=== PATIENT | female | born 1995 | race Caucasian/White ===

== ENCOUNTER 2021-02-28 21:39 | Emergency (ER) | payer BC ==
[~2021-02-28] VITALS: Ht 160 cm; Wt 97.0 kg
[2021-02-28 22:27] LABS: AMPHETAMINE SCREEN, URINE NEGATIVE (NEGATIVE); BARBITURATE SCREEN URINE NEGATIVE (NEGATIVE); BENZODIAZEPINES SCREEN URINE NEGATIVE (NEGATIVE); CANNABINOID SCREEN, URINE NEGATIVE (NEGATIVE); COCAINE SCREEN URINE NEGATIVE (NEGATIVE); METHADONE STAT NEGATIVE (NEGATIVE); METHAMPHETAMINE SCREEN URINE S NEGATIVE (NEGATIVE); OPIATE SCREEN URINE NEGATIVE (NEGATIVE); OXYCODONE STAT NEGATIVE (NEGATIVE); PROPOXYPHENE STAT NEGATIVE (NEGATIVE); TRICYCLIC ANTIDEPRESSANTS SCRE NEGATIVE (NEGATIVE)
--- NOTE | 2021-02-28 22:28 | ED Psychosocial ---
General Chief Complaint: Suicidal Ideation Risk Stated Complaint: SUICIDAL Nursing Triage Note: Pt ambulatory into ER with complaint of suicidal thoughts. Pt states that she has been feeling this way for a while, and last night after fighting with unknown person, she had to fight herself to keep from placing a plastic bag over her head and killing herself. Pt states that she doesn't want to , but plans to kill herself in two years. Pt didn't divuldge more into that. Pt states that she has been keeping her feelings bundled up for too long and this is why she feels suicidal and has plans. Pt denies any self harm. Source: patient Exam Limitations: no limitations (NICOLE GARLAND MD) History of Present Illness Date Seen by Provider: Feb 28, 2021 Time Seen by Provider: 22:19 Initial Comments Patient is a 25-year-old female who presents to the emergency department with her friends this evening with a chief concern of thoughts of harming herself. Patient states over the last couple of days she has had escalating thoughts of self-harm particularly cutting her wrists and ankles and just bleeding to and yesterday states that she was thinking about putting a bag over her head and suffocating herself but talked herself out of it. Patient denies any specific triggers to me. Patient states that she has a history of self-harm and has cut herself twice in the past. She has not done that in the last couple of days but states that she has access to a knife that she keeps in her car. Patient takes Latuda for bipolar disorder and sees a therapist through [facility] as well as a doctor through [facility] that prescribes her medications. She last saw her physician last Tuesday and told her that she had been having thoughts of hurting herself. The physician recommended that she see her therapist but she has not seen her yet. Patient denies any recent illnesses, fevers, chills, cough or congestion. No diarrhea or Covid concerns. No burning with urination or abnormal vaginal discharge. All other review of systems reviewed and negative except as stated above. Timing/Duration: getting worse Severity: severe Associated Symptoms: suicidal ideation (NICOLE GARLAND MD) Allergies and Home Medications Allergies Coded Allergies: No Known Drug Allergies (Unverified , 03/01/21) Patient Home Medication List Home Medication List Reviewed: Yes (NICOLE GARLAND MD) Review of Systems Constitutional: see HPI EENTM: no symptoms reported Respiratory: no symptoms reported Cardiovascular: no symptoms reported Gastrointestinal: no symptoms reported Genitourinary: no symptoms reported : No Control/STD Prophylaxis: Other Musculoskeletal: no symptoms reported Skin: no symptoms reported Psychiatric/Neurological: Anxiety, Depressed, Emotional Problems, Other (Suicidal thoughts) (NICOLE GARLAND MD) All Other Systems Reviewed Negative Unless Noted: Yes (NICOLE GARLAND MD) Past Ypyeldl-Yrywgk-Eheqxn Hx Patient Social History Tobacco Use?: No Use of E-Cig and/or Vaping dev: Yes E-Cig or Vaping type used: Nicotine Substance use?: No Alcohol Use?: No Pt feels they are or have been: No (NICOLE GARLAND MD) Immunizations Up To Date Influenza Vaccine Up-to-Date: No; Not Current (NCIOLE GARLAND MD) Physical Exam Vital Signs - First Documented 02/28/21 21:53 Temp 36.7 Pulse 90 Resp 20 B/P (MAP) 129/85 (100) Pulse Ox 98 O2 Delivery Room Air (CHARO STROUD MD) Capillary Refill : Less Than 3 Seconds (NICOLE GARLAND MD) Height, Weight, BMI Height: '" Weight: lbs. oz. kg; 37.00 BMI Method: General Appearance: WD/WN, no apparent distress, other (Slightly disheveled and dirty appearing) HEENT: PERRL/EOMI Neck: normal inspection Respiratory: lungs clear, normal breath sounds, no respiratory distress, no accessory muscle use Cardiovascular: regular rate, rhythm, other (Brisk capillary refill) Peripheral Pulses: 2+ Radial Pulses (R) Gastrointestinal: normal bowel sounds, non tender, soft Extremities: normal inspection Neurologic/Psychiatric: alert, normal mood/affect, oriented x 3 Appearance/Memory: disheveled Behavior/Eye Contact: cooperative, good eye contact, normal speech Thoughts/Hallucinations: normal thought pattern, no apparent hallucination Skin: normal color, warm/dry (NICOLE GARLAND MD) Progress/Results/Core Measures Results/Orders Lab Results Laboratory Tests Test 02/28/21 22:10 02/28/21 22:21 03/01/21 02:10 Range/Units Urine Opiates Screen NEGATIVE NEGATIVE Urine Oxycodone Screen NEGATIVE NEGATIVE Urine Methadone Screen NEGATIVE NEGATIVE Urine Propoxyphene Screen NEGATIVE NEGATIVE Urine Barbiturates Screen NEGATIVE NEGATIVE Ur Tricyclic Antidepressants Screen NEGATIVE NEGATIVE Urine Phencyclidine Screen NEGATIVE NEGATIVE Urine Amphetamines Screen NEGATIVE NEGATIVE Urine Methamphetamines Screen NEGATIVE NEGATIVE Urine Benzodiazepines Screen NEGATIVE NEGATIVE Urine Cocaine Screen NEGATIVE NEGATIVE Urine Cannabinoids Screen NEGATIVE NEGATIVE White Blood Count 10.8 4.3-11.0 10^3/uL Red Blood Count 4.34 3.80-5.11 10^6/uL Hemoglobin 12.7 11.5-16.0 g/dL Hematocrit 39 35-52 % Mean Corpuscular Volume 89 80-99 fL Mean Corpuscular Hemoglobin 29 25-34 pg Mean Corpuscular Hemoglobin Concent 33 32-36 g/dL Red Cell Distribution Width 12.8 10.0-14.5 % Platelet Count 287 130-400 10^3/uL Mean Platelet Volume 10.1 9.0-12.2 fL Immature Granulocyte % (Auto) 0 % Neutrophils (%) (Auto) 70 42-75 % Lymphocytes (%) (Auto) 22 12-44 % Monocytes (%) (Auto) 7 0-12 % Eosinophils (%) (Auto) 1 0-10 % Basophils (%) (Auto) 0 0-10 % Neutrophils # (Auto) 7.5 1.8-7.8 10^3/uL Lymphocytes # (Auto) 2.4 1.0-4.0 10^3/uL Monocytes # (Auto) 0.7 0.0-1.0 10^3/uL Eosinophils # (Auto) 0.1 0.0-0.3 10^3/uL Basophils # (Auto) 0.0 0.0-0.1 10^3/uL Immature Granulocyte # (Auto) 0.0 0.0-0.1 10^3/uL Sodium Level 140 135-145 MMOL/L Potassium Level 4.0 3.6-5.0 MMOL/L Chloride Level 107 98-107 MMOL/L Carbon Dioxide Level 23 21-32 MMOL/L Anion Gap 10 5-14 MMOL/L Blood Urea Nitrogen 12 7-18 MG/DL Creatinine 0.88 0.60-1.30 MG/DL Estimat Glomerular Filtration Rate > 60 BUN/Creatinine Ratio 14 Glucose Level 94 70-105 MG/DL Calcium Level 9.6 8.5-10.1 MG/DL Corrected Calcium 9.5 8.5-10.1 MG/DL Total Bilirubin 0.2 0.1-1.0 MG/DL Aspartate Amino Transf (AST/SGOT) 17 5-34 U/L Alanine Aminotransferase (ALT/SGPT) 18 0-55 U/L Alkaline Phosphatase 69 40-136 U/L Total Protein 7.3 6.4-8.2 GM/DL Albumin 4.1 3.2-4.5 GM/DL Serum Test, Qualitative NEGATIVE NEGATIVE Salicylates Level < 5.0 L 5.0-20.0 MG/DL Acetaminophen Level < 10 L 10-30 UG/ML Serum Alcohol < 10 <10 MG/DL SARS-CoV-2 RNA (RT-PCR) Not Detected Not Detecte (CHARO STROUD MD) My Orders Orders - CHARO STROUD MD General/Regular (03/01/21 Breakfast) (CHARO STROUD MD) Vital Signs/I&O 02/28/21 21:53 Temp 36.7 Pulse 90 Resp 20 B/P (MAP) 129/85 (100) Pulse Ox 98 O2 Delivery Room Air (CHARO STROUD MD) Blood Pressure Mean: 100 Progress Progress Note : Progress Note Assumed care of the patient at 0600 pending placement for inpatient psychiatric care. Mental health team is working on finding a bed and believe that she does need inpatient care. Patient accepts that as well. She is resting peacefully currently. 0750: Patient has been accepted at [facility] in [place], [place]. We will arrange transportation via secure hospital transport service. I did discuss this with the patient and she agrees. Excepting physician is Dr. Snyder and does not require doc to doc. She did have screening via their mental health screener. Discussed with patient and she is still appreciative and willing to go. (CHARO STROUD MD) Departure Impression Primary Impression: Suicidal ideations Additional Impression: Depression Qualified Codes: F32.9 - Major depressive disorder, single episode, unspecified Disposition: 02 XFER SHT-TRM HOSP Condition: Stable Transfer Transfer Reason: Exceeds level of care Transfer Time: 07:50 [facility] Method of Transfer: Private Vehicle (Secure hospital transport) (CHARO STROUD MD) Departure-Patient Inst. Referrals: [facility] (PCP/Family) Primary Care Physician Patient Instructions: OUTPT MENTAL HEALTH SERVICES NICOLE GARLAND MD Feb 28, 2021 22:28 CHARO STROUD MD Mar 01, 2021 08:01
[2021-02-28 22:29] LABS: BASOPHILS % (AUTO) 0 % (0-10); EOSINOPHILS # (AUTO) 0.1 10^3/uL (0.0-0.3); EOSINOPHILS % (AUTO) 1 % (0-10); HEMATOCRIT 39 % (35-52); HEMOGLOBIN 12.7 g/dL (11.5-16.0); LYMPHOCYTES # (AUTO) 2.4 10^3/uL (1.0-4.0); LYMPHOCYTES % (AUTO) 22 % (12-44); MEAN CORPUSCULAR HEMOGLOBIN 29 pg (25-34); MEAN CORPUSCULAR HGB CONC 33 g/dL (32-36); MEAN CORPUSCULAR VOLUME 89 fL (80-99); MEAN PLATELET VOLUME 10.1 fL (9.0-12.2); MONOCYTES # (AUTO) 0.7 10^3/uL (0.0-1.0); MONOCYTES % (AUTO) 7 % (0-12); NEUTROPHILS # (AUTO) 7.5 10^3/uL (1.8-7.8); NEUTROPHILS % (AUTO) 70 % (42-75); PLATELET COUNT 287 10^3/uL (130-400); WHITE BLOOD COUNT 10.8 10^3/uL (4.3-11.0)
[2021-02-28 22:42] LABS: CHLORIDE 107 MMOL/L (98-107); SODIUM 140 MMOL/L (135-145)
[2021-02-28 22:43] LABS: ALBUMIN 4.1 GM/DL (3.2-4.5)
[2021-02-28 22:44] LABS: CALCIUM 9.6 MG/DL (8.5-10.1)
[2021-02-28 22:45] LABS: GLUCOSE 94 MG/DL (70-105); TOTAL PROTEIN 7.3 GM/DL (6.4-8.2)
[2021-02-28 22:46] LABS: CARBON DIOXIDE 23 MMOL/L (21-32)
[2021-02-28 22:47] LABS: BILIRUBIN,TOTAL 0.2 MG/DL (0.1-1.0)
[2021-02-28 22:49] LABS: ALKALINE PHOSPHATASE 69 U/L (40-136); CREATININE SERUM 0.88 MG/DL (0.60-1.30); GFR ESTIMATED > 60
[2021-02-28 22:50] LABS: BUN/CREATININE RATIO 14
[2021-02-28 22:52] LABS: ALANINE AMINOTRANSFERASE 18 U/L (0-55); SALICYLATE < 5.0 MG/DL (5.0-20.0)
[2021-02-28 22:55] LABS: ACETAMINOPHEN < 10 UG/ML (10-30)
[2021-03-01 08:32] VITALS: BP 129/85
== END 2021-03-01 08:38 | disposition short-term general hospital (02) ==
LOC: EDUNIT# 21:39 → ER 21:41
DX: R45.851 Suicidal ideations (principal); F32.9 Major depressive disorder, single episode, unspecified; Z20.822 Contact with and (suspected) exposure to COVID-19
CPT/HCPCS: 80053; 80306; 84703; 85025; 87636; 93005; 99283; G0480 ×3; 36415; 80320; 80329

== ENCOUNTER 2021-06-16 13:01 | Emergency (ER) | payer BC ==
[~2021-06-16] VITALS: Ht 160 cm; Wt 93.0 kg
--- OUTSIDE RECORDS SUMMARY | 2021-06-16 13:06 | XMS REPORT | Clinical Summary ---
Author Author [facility] Address Unknown Phone Unavailable Care Team Providers Care Railroad Cook Name Role Phone Unassigned, None PCP Unavailable Allergies No known active allergies Medications End Date Status Medication Sig Dispensed Refills Start Date Active FLUoxetine (PROZAC) 20 MG Take 1 30 capsule 0 capsuleIndications: mood capsule (20 1 mg total) by mouth daily. Indications: mood Active ARIPiprazole (ABILIFY) 2 Take 1 tablet 30 tablet 0 MG tabletIndications: (2 mg total) 1 Mood disorder (HCC) by mouth daily. Active eszopiclone (LUNESTA) 2 Take 1 tablet 30 tablet 0 MG TABSIndications: (2 mg total) 1 Insomnia by mouth at bedtime. Indications: Trouble Sleeping Active Problems Problem Noted Date Mood disorder 03/01/2021 PTSD (post-traumatic stress disorder) 03/01/2021 FARRAH (generalized anxiety disorder) 03/01/2021 Social anxiety disorder 03/01/2021 Nicotine use disorder 03/01/2021 Other insomnia 03/01/2021 Suicidal ideation 03/01/2021 Social History Date Tobacco Use Types Packs/Day Years Used Never Smoker Smokeless Tobacco: Never Used Comments Alcohol Use Standard Drinks/Week Not Currently 0 (1 standard drink = 0.6 o z pure alcohol) Alcohol Habits Answer Date Recorded How often do you have a drink containing alcohol? Monthly or less 03/02/2021 How many drinks containing alcohol do you have on 1 or 2 03/02/2021 a typical day when you are drinking? How often do you have six or more drinks on one Less than monthly 03/02/2021 occasion? Physical Activity Answer Date Recorded On average, how many days per week do you engage 2 days 03/02/2021 in moderate to strenuous exercise (like walking fast, running, jogging, dancing, swimmi ng, biking, or other activities that cause a light or heavy sweat)? On average, how many minutes do you engage in 30 min 03/02/2021 exercise at this level? Financial Resource Strain Answer Date Recorde d How hard is it for you to pay for the very basics Hard 03/02/2021 like food, housing, medical care, and h eating? Food Insecurity Answer Date Recorded Within the past 12 months, you worried that your Often jonathan e 03/02/2021 food would run out before you got money to buy more. Within the past 12 months, the food you bought Often true 03/02/2021 just didn't last and you didn't have mo sonny to get more. Transportation Needs Answer Date Recorded In the past 12 months, has lack of transportation No 03/02/2021 kept you from medical appointments or f rom getting medications? In the past 12 months, has lack of transportation Yes 03/02/2021 kept you from meetings, work, or gettin g things needed for daily living? Control Partners Comments Sexually Active Not Currently Sex Assigned at Date Recorded Not on file Industry Job Start Date Occupation Not on file Not on file Not on file Last Filed Vital Signs Reading Time Taken Comments Vital Sign 100/59 03/04/2021 8:04 AM CDT Blood Pressure 88 03/04/2021 8:04 AM CDT Pulse 36.8 C (98.3 F) 03/04/2021 8:03 AM CDT Temperature 16 03/04/2021 8:03 AM CDT Respiratory Rate 100% 03/04/2021 8:03 AM CDT Oxygen Saturation - - Inhaled Oxygen Concentration 92.1 kg (203 lb) 03/01/2021 1:40 PM CDT Weight 160 cm (5' 3") 03/01/2021 1:40 PM CDT Height 35.96 03/01/2021 1:40 PM CDT Body Mass Index Plan of Treatment Health Maintenance Due Date Last Done Comments Varicella Vaccines (1 of 1998 2 - 2-dose childhood series) HPV Vaccines (1 - 2-dose 2008 series) COVID-19 Vaccine (1) 2009 Hepatitis C Screening 2015 DTaP,Tdap,and Td Vaccines 2016 (1 - Tdap) MMR Vaccines-Adult 2016 Cervical Cancer Screening 2018 Influenza Vaccine (#1) 2021 Pneumo-Vaccine: 65+Yrs (1 2062 of 1 - PPSV23) HIB Vaccines Aged Out No longer eligible based on patient's age to complete this topic IPV Vaccines Aged Out No longer eligible based on patient's age to complete this topic Meningococcal Vaccine Aged Out No longer eligib le based on patient's age to complete this topic Pneumo-Vaccine: Peds (0-5 Aged Out No longer el igible based on patient's age to Yrs) & At-Risk Patients complete this topic (6-64 Yrs) Rotavirus Vaccines Aged Out No longer eligible based on patient's age to complete this topic Results Not on filefrom Last 3 Months Insurance Type Payer Benefit Subscriber ID Effective Phone Address Plan / Dates Group PPO BCBS BCBS BLUE [id number] 2020-P [address] [place] [address] Advance Directives For more information, please contact: [phone] 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
--- NOTE | 2021-06-16 13:23 | ED Lower Extremity ---
General Chief Complaint: Lower Extremity Stated Complaint: L ANKLE INJ Source: patient Exam Limitations: no limitations (IGNNY HEWITT APRN) History of Present Illness Date Seen by Provider: Jun 16, 2021 Time Seen by Provider: 13:22 Initial Comments to ER with left lateral ankle pain after twisting her ankle a couple of times last week. Onset: just prior to arrival Severity: moderate Pain/Injury Location: left ankle Method of Injury: fell Modifying Factors: Worse With Movement (GINNY HEWITT APRN) Allergies and Home Medications Allergies Coded Allergies: No Known Drug Allergies (Unverified , 03/01/21) Patient Home Medication List Home Medication List Reviewed: Yes (GINNY HEWITT APRN) Review of Systems Constitutional: see HPI EENTM: see HPI Respiratory: no symptoms reported Cardiovascular: no symptoms reported Genitourinary: no symptoms reported Musculoskeletal: see HPI Skin: no symptoms reported Psychiatric/Neurological: No Symptoms Reported (GINNY HEWITT APRN) Physical Exam Vital Signs Vital Signs - First Documented 06/16/21 13:15 Temp 36.9 Pulse 80 Resp 18 B/P (MAP) 101/69 (80) Pulse Ox 97 O2 Delivery Room Air (PARVIZ AYERS MD) Vital Signs Capillary Refill : (GINNY HEWITT APRN) Height, Weight, BMI Height: '" Weight: lbs. oz. kg; 37.00 BMI Method: General Appearance: WD/WN, no apparent distress HEENT: PERRL/EOMI, normal ENT inspection Respiratory: no respiratory distress, no accessory muscle use Hips: bilateral hip non-tender, bilateral hip normal inspection, bilateral hip normal range of motion Legs: bilateral leg non-tender, bilateral leg normal inspection, bilateral leg normal range of motion Knees: bilateral knee non-tender, bilateral knee normal inspection, bilateral knee normal range of motion Ankles: left ankle pain, left ankle soft tissue tenderness Feet: bilateral foot non-tender, bilateral foot normal inspection, bilateral foot normal range of motion Neurologic/Psychiatric: alert, normal mood/affect, oriented x 3 Skin: normal color, warm/dry No swelling no ecchymosis no abrasion no erythema. Strong dorsalis pedis pulse. Normal overlying skin. (GINNY HEWITT APRN) Progress/Results/Core Measures Results/Orders Vital Signs/I&O 06/16/21 06/16/21 13:15 14:07 Temp 36.9 36.9 Pulse 80 80 Resp 18 18 B/P (MAP) 101/69 (80) 101/69 Pulse Ox 97 97 O2 Delivery Room Air Room Air (PARVIZ AYERS MD) Departure Impression Primary Impression: Sprain and strain of ankle Disposition: 01 HOME, SELF-CARE Condition: Stable Departure-Patient Inst. Decision time for Depature: 13:23 (GINNY HEWITT APRN) Referrals: [facility] ([place]P/Family) Primary Care Physician Patient Instructions: Ankle Sprain Add. Discharge Instructions: 1. Tylenol and ibuprofen for pain control. Return to ER for any concerns. All discharge instructions reviewed with patient and/or family. Voiced understanding. ATTENDING PHYSICIAN NOTE: I was physically present as attending physician in the emergency department during the care of this patient, but I was not directly involved in the decision making or delivery of care for this patient. (PARVIZ AYERS MD) GINNY HEWITT APRN Jun 16, 2021 13:23 PARVIZ AYERS MD Jun 18, 2021 12:09
--- NOTE | 2021-06-16 13:40 | Diagnostic Imaging Report ---
INDICATION: Left ankle injury. Pain. FINDINGS: Three views of the left ankle show no fracture, dislocation, or other abnormality. IMPRESSION: Normal left ankle. Dictated by: Dictated on workstation # [id number]
[2021-06-16 14:07] VITALS: BP 101/69
== END 2021-06-16 14:07 | disposition home or self-care (01) ==
LOC: EDUNIT# 13:01 → ER 13:03
DX: S93.402A Sprain of unspecified ligament of left ankle, initial encounter (principal); X50.1XXA Overexertion from prolonged static or awkward postures, initial encounter
CPT/HCPCS: 73610

== ENCOUNTER → 2021-06-24 | Outpatient (REF) ==
--- NOTE | 2021-06-24 12:35 | Diagnostic Imaging Report ---
INDICATION: HAND INJURY, SMASHED AT WORK, PAIN TECHNIQUE: Three views of the left hand. CORRELATION STUDY: None FINDINGS: There is normal alignment and appearance of the osseous structures of the hand. The joint spaces are maintained. There is no acute fracture. Soft tissues are unremarkable. IMPRESSION: 1. Negative for acute bony abnormality of the hand. Dictated by: Dictated on workstation # [id number]
== END ==
LOC: OCC 11:57
PROVIDERS: ATTEND Nurse Practitioner Family
DX: S69.92XA Unspecified injury of left wrist, hand and finger(s), initial encounter (principal); X58.XXXA Exposure to other specified factors, initial encounter
CPT/HCPCS: 73130

== ENCOUNTER 2021-08-27 19:52 | Emergency (ER) | payer BC ==
[~2021-08-27] VITALS: Ht 160 cm; Wt 93.4 kg
--- OUTSIDE RECORDS SUMMARY | 2021-08-27 19:57 | XMS REPORT | Clinical Summary ---
Author Author [facility] Address Unknown Phone Unavailable Care Team Providers Care Weathercaster Name Role Phone Unassigned, None PCP Unavailable [...] on one Less than monthly 03/02/2021 occasion? Comment: Not asked Physical Activity Answer Date Recorded On average, [...] Health Maintenance Due Date Last Done Comments HIV Screening 1997 HPV Vaccines (1 - 2-dose 2008 series) Hepatitis C Screening 2015 DTaP,Tdap,and Td Vaccines 2016 (1 - Tdap) MMR Vaccines-Adult 2016 Cervical Cancer Screening 2018 COVID-19 Vaccine (3 - 07/11/2021 01/08/2021, Booster for Moderna 12/11/2020 series) Pneumo-Vaccine: 65+Yrs (1 2062 of 1 - PPSV23) Varicella Vaccines Completed 08/27/2010, 07/18/2000, 06/17/2000 Influenza Vaccine Completed 07/10/2021 HIB Vaccines Aged Out No longer eligible [...] / Dates Group PPO BCBS BCBS BLUE [id number] 2020-P [address] [place] [address] Advance Directives For more information, please contact: [phone] 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
[2021-08-27 20:50] VITALS: BP 98/66
[2021-08-27] MEDS ORDERED: NAPR500T8 PO (21:16)
--- NOTE | 2021-08-27 21:16 | ED Upper Extremity ---
General Chief Complaint: Upper Extremity Stated Complaint: LEFT ARM/SHOULDER PAIN Nursing Triage Note: PT AMB TO FT 3 W REPORTS OF LEFT ARM PAIN THAT RADIATES UP TO HER SHOULDER X2-3 DAYS. PT DENIES INJURY, A&OX4. (SANJANA BLAKELY) History of Present Illness Date Seen by Provider: Aug 27, 2021 Time Seen by Provider: 21:12 Initial Comments Patient is a 26-year-old female who works at [employer] who presents ED with left wrist pain. Pain located to the left forearm, proximal wrist. Pain with extension of the left wrist. No swelling erythema or ecchymosis. Pain radiating up into the left arm. She states she has been using her arm more than normal. Pain started 2 to 3 days ago. She has been taking ibuprofen without much improvement. (SANJANA BLAKELY) Allergies and Home Medications Allergies Coded Allergies: No Known Drug Allergies (Unverified , 03/01/21) Patient Home Medication List Home Medication List Reviewed: Yes (SANJANA BLAKELY) Naproxen (Naproxen) 500 Mg Tablet.dr, 500 MG PO BID Prescribed by: BIANCA CHANEL on 08/27/212115 Review of Systems Constitutional: No chills, No dizziness, No fever, No malaise EENTM: No ear discharge Respiratory: No cough, No dyspnea on exertion, No orthopnea, No short of breath Cardiovascular: No chest pain, No edema, No Hx of Intervention Gastrointestinal: No abdominal pain, No diarrhea, No nausea, No vomiting (SANJANA BLAKELY) Past Fqhkhly-Yebmvj-Khppya Hx Patient Social History Tobacco Use?: No Use of E-Cig and/or Vaping dev: Yes E-Cig or Vaping type used: Nicotine Use of E-Cig and/or Vaping Willem: Current Everyday User Substance use?: No Alcohol Use?: No (SANJANA BLAKELY) Immunizations Up To Date First/Initial COVID19 Vaccinat: NOVEMBER 2020 Second COVID19 Vaccination Devan: DECEMBER 2020 COVID19 Vaccine Retail Planning Manager: NILDA (SANJANA BLAKELY) Physical Exam Vital Signs Vital Signs - First Documented 08/27/21 20:50 Temp 36.5 Pulse 74 Resp 20 B/P (MAP) 98/66 (77) Pulse Ox 100 O2 Delivery Room Air (OLIVA,NEHAL K DO) Vital Signs Capillary Refill : Less Than 3 Seconds (SANJANA BLAKELY) Height, Weight, BMI Height: '" Weight: lbs. oz. kg; 36.00 BMI Method: General Appearance: WD/WN, no apparent distress HEENT: PERRL/EOMI, normal ENT inspection, TMs normal, pharynx normal Neck: non-tender, full range of motion, supple, normal inspection Cardiovascular: regular rate, rhythm, no edema, no gallop, no JVD Respiratory: chest non-tender, lungs clear, normal breath sounds, no accessory muscle use Gastrointestinal: normal bowel sounds, non tender, soft Elbow/Forearm: bone tenderness, swelling Wrist: Yes limited ROM, Yes pain, Yes soft tissue tenderness Hand: normal inspection, non-tender, no evidence of injury (SANJANA BLAKELY) Progress/Results/Core Measures Results/Orders Vital Signs/I&O 08/27/21 20:50 Temp 36.5 Pulse 74 Resp 20 B/P (MAP) 98/66 (77) Pulse Ox 100 O2 Delivery Room Air (OLIVA,NEHAL K DO) Blood Pressure Mean: 77 Departure Communication (Admissions) Patient presents ED with left forearm pain. Pain located to the distal forearm, left proximal wrist. Pain with extension of left wrist. Neurovascular intact. Denies any trauma. Appears to be more tendinitis versus forearm and/or wrist sprain. Recommend Kenny wrap for support. Ice. Provided work note for few days. Discharge anti-inflammatories. Return precaution were discussed with patient. Outpatient follow-up with orthopedic (SANJANA BLAKELY) Impression Primary Impression: Forearm pain Disposition: HOME, SELF-CARE Condition: Stable Departure-Patient Inst. Decision time for Depature: 21:14 (SANJANA BLAKELY) Referrals: [facility] (PCP/Family) Primary Care Physician Patient Instructions: Tendonitis (DC) Scripts Naproxen (Naproxen) 500 Mg Tablet. 500 MG PO BID for 10 Days, #20 TAB Prov: SANJANA BLAKELY 08/27/21 Work/School Note: Family Work Note, Work Release Form Date Seen in the Emergency Department: Aug 27, 2021 Return to Work: Aug 30, 2021 ATTENDING PHYSICIAN NOTE: I WAS PHYSICALLY PRESENT ER PHYSICIAN WHEN THIS PATIENT WAS IN ER, BUT I WAS NOT INVOLVED IN ANY DECISION MAKING OR ANY CARE OF THIS PATIENT. (NEHAL BAPTISTE DO) SANJANA BLAKELY Aug 27, 2021 21:16 NEHAL BAPTISTE DO Aug 28, 2021 03:45
[2021-08-27] MEDS ORDERED: NAPROXEN 250 MG (NAPROSYN) TABLET PO STA (21:17)
== END 2021-08-27 21:36 | disposition home or self-care (01) ==
LOC: EDUNIT# 19:52 → ER 19:54
DX: M79.632 Pain in left forearm (principal); F17.290 Nicotine dependence, other tobacco product, uncomplicated
CPT/HCPCS: 99283

== ENCOUNTER 2021-10-13 22:07 | Emergency (ER) | payer SELFPAY ==
[~2021-10-13 22:07] MED LIST: NAPR500T8 PO
[2021-10-13 22:26] LABS: BASOPHILS # (AUTO) 0.1 10^3/uL (0.0-0.1); BASOPHILS % (AUTO) 1 % (0-10); EOSINOPHILS # (AUTO) 0.1 10^3/uL (0.0-0.3); EOSINOPHILS % (AUTO) 1 % (0-10); HEMATOCRIT 39 % (35-52); HEMOGLOBIN 12.4 g/dL (11.5-16.0); LYMPHOCYTES # (AUTO) 2.8 10^3/uL (1.0-4.0); LYMPHOCYTES % (AUTO) 28 % (12-44); MEAN CORPUSCULAR HEMOGLOBIN 29 pg (25-34); MEAN CORPUSCULAR HGB CONC 32 g/dL (32-36); MEAN CORPUSCULAR VOLUME 91 fL (80-99); MEAN PLATELET VOLUME 9.4 fL (9.0-12.2); MONOCYTES # (AUTO) 0.8 10^3/uL (0.0-1.0); MONOCYTES % (AUTO) 8 % (0-12); NEUTROPHILS # (AUTO) 6.1 10^3/uL (1.8-7.8); NEUTROPHILS % (AUTO) 62 % (42-75); PLATELET COUNT 329 10^3/uL (130-400); WHITE BLOOD COUNT 9.8 10^3/uL (4.3-11.0)
[2021-10-13] MEDS ORDERED: KETOROLAC 30 MG/ML VIAL IVP STA (22:27)
[2021-10-13 22:29] LABS: BILIRUBIN,URINE NEGATIVE (NEGATIVE); CLARITY,URINE CLEAR; COLOR,URINE YELLOW; GLUCOSE, URINE (UA) NEGATIVE (NEGATIVE); KETONES,URINE NEGATIVE (NEGATIVE); LEUKOCYTE ESTERASE ,URINE 1+ (NEGATIVE); NITRITE,URINE NEGATIVE (NEGATIVE); PH,URINE 5.5 (5-9); PROTEIN,URINE NEGATIVE (NEGATIVE)
[2021-10-13] MEDS ORDERED: LACTATED RINGERS 1,000 ML IV ONE (22:30)
--- NOTE | 2021-10-13 22:32 | ED Abdominal Pain ---
General Chief Complaint: Abdominal/GI Problems Stated Complaint: LLQ PAIN Source of Information: Patient History of Present Illness Date Seen by Provider: Oct 13, 2021 Time Seen by Provider: 22:22 Initial Comments PT ARRIVES VIA POV C/O LLQ PAIN RADIATION TO LEFT FLANK PAIN BEGAN AT 1800 TONIGHT WHILE STANDING AT WORK AT [employer] PAIN IS CONSTANT, BUT WAXES AND WANES IN INTENSITY NOTHING WORSENS OR IMPROVES PAIN, BUT HAS NOT TAKEN ANYTHING FOR PAIN NO NAUSEA/VOMITING/DIARRHEA NO URINARY SYMPTOMS NO FEVER NO HISTORY OF SIMILAR NO HISTORY PRIOR ABDOMINAL SURGERIES LMP: 10/09/21--HAS ALMOST STOPPED HAS NEXPLANON IN PLACE PCP: [facility] Allergies and Home Medications Allergies Coded Allergies: No Known Drug Allergies (Unverified , 03/01/21) Patient Home Medication List Naproxen (Naproxen) 500 Mg Tablet.dr, 500 MG PO BID Prescribed by: BIANCA CHANEL on 08/27/212115 Review of Systems Review of Systems Constitutional: no symptoms reported Respiratory: No Symptoms Reported Cardiovascular: No Symptoms Reported Gastrointestinal: See HPI, Abdominal Pain; Denies Constipated, Denies Diarrhea, Denies Nausea, Denies Vomiting Genitourinary: No Symptoms Reported Musculoskeletal: see HPI, back pain Skin: no symptoms reported Psychiatric/Neurological: No Symptoms Reported Endocrine: No Symptoms Reported Hematologic/Lymphatic: No Symptoms Reported Past Imkooqv-Aldezq-Rqmnjs Hx Patient Social History Tobacco Use?: No Substance use?: No Alcohol Use?: No Immunizations Up To Date First/Initial COVID19 Vaccinat: NOVEMBER 2020 Second COVID19 Vaccination Devan: DECEMBER 2020 Past Medical History Surgeries: No Respiratory: No Cardiac: No Neurological: No : No Reproductive Disorders: No Genitourinary: No Gastrointestinal: No Musculoskeletal: No Endocrine: Yes (OBESITY) HEENT: No (GLASSES) Cancer: No Psychosocial: Yes Anxiety, Depression Integumentary: No Blood Disorders: No Physical Exam Vital Signs Vital Signs - First Documented 10/13/21 22:16 Temp 35.5 Pulse 83 Resp 16 B/P (MAP) 116/89 (98) Pulse Ox 100 O2 Delivery Room Air Capillary Refill : Height/Weight/BMI Height: '" Weight: lbs. oz. kg; 36.00 BMI Method: General Appearance: WD/WN, no apparent distress, obese, other (WALKS UPRIGHT AND MOVES WITHOUT DIFFICULTY. DOES NOT APPEAR TO BE IN ANY DISCOMFORT OR DISTRESS. HAIR IS [place]) Respiratory: normal breath sounds, no respiratory distress, no accessory muscle use Cardiovascular: regular rate, rhythm, no murmur Gastrointestinal: normal bowel sounds, soft; No distended, No guarding, No rebound; tenderness (LEFT MID AND LOWER ABDOMEN AND LEFT FLANK TENDERNESS. 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, no motor/sensory deficits, a lert, normal mood/affect, oriented x 3 Skin: normal color, warm/dry, tattoos/piercings Progress/Results/Core Measures Results/Orders Lab Results Laboratory Tests Test 10/13/21 22:18 Range/Units White Blood Count 9.8 4.3-11.0 10^3/uL Red Blood Count 4.29 3.80-5.11 10^6/uL Hemoglobin 12.4 11.5-16.0 g/dL Hematocrit 39 35-52 % Mean Corpuscular Volume 91 80-99 fL Mean Corpuscular Hemoglobin 29 25-34 pg Mean Corpuscular Hemoglobin Concent 32 32-36 g/dL Red Cell Distribution Width 13.2 10.0-14.5 % Platelet Count 329 130-400 10^3/uL Mean Platelet Volume 9.4 9.0-12.2 fL Immature Granulocyte % (Auto) 0 % Neutrophils (%) (Auto) 62 42-75 % Lymphocytes (%) (Auto) 28 12-44 % Monocytes (%) (Auto) 8 0-12 % Eosinophils (%) (Auto) 1 0-10 % Basophils (%) (Auto) 1 0-10 % Neutrophils # (Auto) 6.1 1.8-7.8 10^3/uL Lymphocytes # (Auto) 2.8 1.0-4.0 10^3/uL Monocytes # (Auto) 0.8 0.0-1.0 10^3/uL Eosinophils # (Auto) 0.1 0.0-0.3 10^3/uL Basophils # (Auto) 0.1 0.0-0.1 10^3/uL Immature Granulocyte # (Auto) 0.0 0.0-0.1 10^3/uL Urine Color YELLOW Urine Clarity CLEAR Urine pH 5.5 5-9 Urine Specific [place] 1.025 H 1.016-1.022 Urine Protein NEGATIVE NEGATIVE Urine Glucose (UA) NEGATIVE NEGATIVE Urine Ketones NEGATIVE NEGATIVE Urine Nitrite NEGATIVE NEGATIVE Urine Bilirubin NEGATIVE NEGATIVE Urine Urobilinogen 1.0 < = 1.0 MG/DL Urine Leukocyte Esterase 1+ H NEGATIVE Urine RBC (Auto) 3+ H NEGATIVE Urine RBC 10-25 H /HPF Urine WBC 0-2 /HPF Urine Squamous Epithelial Cells 2-5 /HPF Urine Crystals NONE /LPF Urine Bacteria NEGATIVE /HPF Urine Casts NONE /LPF Urine Mucus SMALL H /LPF Urine Culture Indicated NO Sodium Level 136 135-145 MMOL/L Potassium Level 4.4 3.6-5.0 MMOL/L Chloride Level 104 98-107 MMOL/L Carbon Dioxide Level 22 21-32 MMOL/L Anion Gap 10 5-14 MMOL/L Blood Urea Nitrogen 12 7-18 MG/DL Creatinine 0.74 0.60-1.30 MG/DL Estimat Glomerular Filtration Rate 116 BUN/Creatinine Ratio 16 Glucose Level 86 70-105 MG/DL Calcium Level 9.5 8.5-10.1 MG/DL Corrected Calcium 9.4 8.5-10.1 MG/DL Total Bilirubin 0.3 0.1-1.0 MG/DL Aspartate Amino Transf (AST/SGOT) 17 5-34 U/L Alanine Aminotransferase (ALT/SGPT) 27 0-55 U/L Alkaline Phosphatase 68 40-136 U/L Total Protein 7.6 6.4-8.2 GM/DL Albumin 4.1 3.2-4.5 GM/DL Amylase Level 27 25-125 U/L Lipase 23 8-78 U/L My Orders Orders - NEHAL BAPTISTE DO Ed Iv/Invasive Line Start (10/13/21 22:22) Urine Bedside (10/13/21 22:22) Amylase (10/13/21 22:22) Cbc With Automated Diff (10/13/21 22:22) Comprehensive Metabolic Panel (10/13/21 22:22) Lipase (10/13/21 22:22) Ua Culture If Indicated (10/13/21 22:22) Ct Abd/Pelvis Wo(Kidney Stone) (10/13/21 22:27) Abdomen/Kub 1view (10/13/21 22:27) Ed Iv/Invasive Line Start (10/13/21 22:27) Lactated Ringers (Lr 1000 Ml Iv Solution (10/13/21 22:30) Ketorolac Injection (Toradol Injection) (10/13/21 22:27) Medications Given in ED Current Medications Medications Dose Ordered Sig/Brett Route Start Time Stop Time Status Last Admin Dose Admin Lactated Ringer's 1,000 ml @ 0 mls/hr Q0M ONCE IV 10/13/21 22:30 10/13/21 22:31 DC 10/13/21 22:36 999 MLS/HR Vital Signs/I&O 10/13/21 22:16 Temp 35.5 Pulse 83 Resp 16 B/P (MAP) 116/89 (98) Pulse Ox 100 O2 Delivery Room Air 10/13/21 23:59 Intake Total 1000 ml Balance 1000 ml Departure Impression Primary Impression: Left lateral abdominal pain Additional Impression: UTI (urinary tract infection) Disposition: HOME, SELF-CARE Condition: Improved Departure-Patient Inst. Decision time for Depature: 00:15 Referrals: [facility] (PCP) Primary Care Physician NATI BUTCHER APRN (Family) Primary Care Physician Patient Instructions: Abdominal Pain, Adult ED, Urinary Tract Infection, Adult ED Add. Discharge Instructions: LOTS OF CLEAR LIQUIDS FOLLOW UP WITH [facility] IN 2-3 DAYS FOR FURTHER CARE, RETURN TO ER IF WORSE All discharge instructions reviewed with patient and/or family. Voiced understanding. Scripts Naproxen (Naproxen) 500 Mg Tablet. 500 MG PO BID, #20 TAB Prov: NEHAL BAPTISTE DO 10/14/21 Nitrofurantoin Monohyd/M-Cryst (Macrobid 100 mg Capsule) 100 Mg Capsule 1 TAB PO BID, #20 CAP Prov: NEHAL BAPTISTE DO 10/14/21 NEHAL BAPTISTE DO Oct 13, 2021 22:32
[2021-10-13 22:33] LABS: ALBUMIN 4.1 GM/DL (3.2-4.5)
[2021-10-13 22:34] LABS: POTASSIUM 4.4 MMOL/L (3.6-5.0)
[2021-10-13 22:35] LABS: CALCIUM 9.5 MG/DL (8.5-10.1)
[2021-10-13 22:36] LABS: TOTAL PROTEIN 7.6 GM/DL (6.4-8.2)
[2021-10-13 22:38] LABS: BILIRUBIN,TOTAL 0.3 MG/DL (0.1-1.0)
[2021-10-13 22:40] LABS: CREATININE SERUM 0.74 MG/DL (0.60-1.30)
[2021-10-13 22:52] LABS: BACTERIA,URINE NEGATIVE /HPF; WBC,URINE 0-2 /HPF
[2021-10-14] MEDS ORDERED: NAPR500T8 PO (00:21)
[2021-10-14] MEDS ORDERED: NITR-65 PO (00:21)
[2021-10-14 00:23] VITALS: BP 116/79
[2021-10-14] MEDS ORDERED: NITROFURANTOIN 100 MG (MACROBID) CAPSULE PO ONE (00:30)
--- NOTE | 2021-10-14 06:20 | Diagnostic Imaging Report ---
PROCEDURE: CT urinary tract, rule out kidney stone. TECHNIQUE: Multiple contiguous axial images were obtained through the abdomen and pelvis without the use of intravenous contrast. Auto Exposure Controls were utilized during the CT exam to meet ALARA standards for radiation dose reduction. INDICATION: Left lower quadrant abdominal pain. COMPARISON: None. FINDINGS: Tiny subcentimeter nodule in the left lung base is likely benign. The right lung is clear. The gallbladder is contracted likely from a postprandial state. Solid organs are otherwise unremarkable. There is mild constipation throughout the colon without obstruction or ileus. There is no inflammatory process. This is thought to represent appendix is normal. Reproductive organs and urinary bladder are normal. Osseous structures are age-appropriate. IMPRESSION: 1. Tiny subcentimeter nodule left lung base probably noncalcified granuloma. 2. Mild constipation. Agree with preliminary report. Dictated by: Dictated on workstation # [id number]
--- NOTE | 2021-10-14 06:31 | Diagnostic Imaging Report ---
INDICATION: Left lower quadrant abdominal pain COMPARISON: None. FINDINGS: Single view the abdomen demonstrates [id number] constipation without obstruction or ileus. No large pocket of free air seen. Osseous structures normal. IMPRESSION: Constipation. Dictated by: Dictated on workstation # [id number]
== END 2021-10-14 00:27 | disposition home or self-care (01) ==
LOC: EDUNIT# 22:07 → ER 22:09
DX: N39.0 Urinary tract infection, site not specified (principal); E66.9 Obesity, unspecified; Z68.36 Body mass index [BMI] 36.0-36.9, adult
CPT/HCPCS: 36415; 74018; 74176; 80053; 81000; 82150; 83690; 84703; 85025

== ENCOUNTER 2021-11-16 23:36 | Emergency (ER) | payer SELFPAY ==
[~2021-11-16] VITALS: Ht 160 cm; Wt 95.7 kg
[~2021-11-16 23:36] MED LIST changes: +NITR-65 PO
[2021-11-17 00:09] LABS: BILIRUBIN,URINE NEGATIVE (NEGATIVE); CLARITY,URINE CLEAR; COLOR,URINE YELLOW; GLUCOSE, URINE (UA) NEGATIVE (NEGATIVE); KETONES,URINE NEGATIVE (NEGATIVE); LEUKOCYTE ESTERASE ,URINE 1+ (NEGATIVE); NITRITE,URINE NEGATIVE (NEGATIVE); PH,URINE 5.5 (5-9); PROTEIN,URINE NEGATIVE (NEGATIVE)
--- NOTE | 2021-11-17 00:18 | ED Psychosocial ---
General Chief Complaint: Psych/Social Disorder Stated Complaint: SUICIDAL IDEATIONS Source: patient Exam Limitations: no limitations (JONAS DIAZ) History of Present Illness Date Seen by Provider: Nov 17, 2021 Time Seen by Provider: 00:00 Initial Comments The patient presents ER by private conveyance from home with chief complaint of suicidal ideation for 1 week as well as worsening depression after a verbal altercation with some of her coworkers at [employer]. She is accompanied by her adoptive sister. Last menstrual period was 2 weeks ago. She has a Nexplanon which is due to come out in a month. She states she has a plan to kill herself by taking all of her medications. She remembers one of them is fluoxetine. She states she has not done anything to harm herself. She does not cut her self- mutilation. She has had a couple stays inpatient at [facility] and this year at the [facility] for psychiatric reasons. She says both of those op portunities were very helpful to her. She is not feeling sick no nausea fever cough shortness of air diarrhea dysuria. No other significant medical history. She was recently diagnosed with left forearm carpal tunnel syndrome. She has known to Marie Baez for primary care at [facility] as well as she has a psychiatrist and a counselor. Last time she saw her counselor was a month ago prior to this episode. She states that she has been eating and drinking well. (JONAS DIAZ) Allergies and Home Medications Allergies Coded Allergies: No Known Drug Allergies (Unverified , 03/01/21) Patient Home Medication List Home Medication List Reviewed: Yes (JONAS DIAZ) Naproxen (Naproxen) 500 Mg Tablet., 500 MG PO BID Prescribed by: BIANCA CHANEL on 08/27/212115 Naproxen (Naproxen) 500 Mg Tablet., 500 MG PO BID Prescribed by: NEHAL BAPTISTE on 10/14/2120 Nitrofurantoin Monohyd/M-Cryst (Macrobid 100 mg Capsule) 100 Mg Capsule, 1 TAB PO BID Prescribed by: NEHAL BAPTISTE on 10/14/2120 Nitrofurantoin Monohyd/M-Cryst (Macrobid 100 mg Capsule) 100 Mg Capsule, 1 TAB PO BID Prescribed by: NICOLE GARLAND on 11/17/21 0738 Review of Systems Constitutional: No chills, No diaphoresis EENTM: No ear discharge, No ear pain Respiratory: No cough, No phlegm Cardiovascular: No chest pain, No palpitations Gastrointestinal: No abdominal pain, No constipation, No diarrhea, No nausea Genitourinary: No decreased output, No discharge, No dysuria Musculoskeletal: No back pain, No joint pain Psychiatric/Neurological: Anxiety, Depressed (JONAS DIAZ) All Other Systems Reviewed Negative Unless Noted: Yes (JONAS DIAZ) Past Aykwpek-Gnziqv-Lwxbwh Hx Patient Social History Tobacco Use?: No Use of E-Cig and/or Vaping dev: No Substance use?: No (JONAS DIAZ) Immunizations Up To Date First/Initial COVID19 Vaccinat: NOVEMBER 2020 Second COVID19 Vaccination Devan: DECEMBER 2020 (JONAS DIAZ) Past Medical History Surgeries: No Respiratory: No Cardiac: No Neurological: No Reproductive Disorders: No Genitourinary: No Gastrointestinal: No Musculoskeletal: No Endocrine: Yes (OBESITY) HEENT: No (GLASSES) Cancer: No Psychosocial: Yes Anxiety, Depression Integumentary: No Blood Disorders: No (JONAS DIAZ) Physical Exam Vital Signs - First Documented 11/16/21 23:52 Temp 36.8 Pulse 84 Resp 20 B/P (MAP) 115/96 (102) Pulse Ox 100 (NICOLE GARLAND MD) Capillary Refill : (JONAS DIAZ) Height, Weight, BMI Height: '" Weight: lbs. oz. kg; 36.00 BMI Method: General Appearance: WD/WN, no apparent distress HEENT: PERRL/EOMI, normal ENT inspection, TMs normal, pharynx normal Neck: full range of motion, supple, normal inspection Respiratory: lungs clear, normal breath sounds, no respiratory distress, no accessory muscle use Cardiovascular: normal peripheral pulses, regular rate, rhythm Peripheral Pulses: 2+ Radial Pulses (R), 2+ Radial Pulses (L) Gastrointestinal: normal bowel sounds, non tender, soft Extremities: normal inspection, normal capillary refill Neurologic/Psychiatric: alert, normal mood/affect, oriented x 3 Appearance/Memory: appropriate appearance, appropriate insight Skin: normal color, warm/dry (JONAS DIAZ) Progress/Results/Core Measures Results/Orders Lab Results Laboratory Tests Test 11/17/21 00:01 11/17/21 00:15 Range/Units Urine Color YELLOW Urine Clarity CLEAR Urine pH 5.5 5-9 Urine Specific [place] 1.025 H 1.016-1.022 Urine Protein NEGATIVE NEGATIVE Urine Glucose (UA) NEGATIVE NEGATIVE Urine Ketones NEGATIVE NEGATIVE Urine Nitrite NEGATIVE NEGATIVE Urine Bilirubin NEGATIVE NEGATIVE Urine Urobilinogen 0.2 < = 1.0 MG/DL Urine Leukocyte Esterase 1+ H NEGATIVE Urine RBC (Auto) TRACE-L H NEGATIVE Urine RBC 0-2 /HPF Urine WBC 5-10 H /HPF Urine Squamous Epithelial Cells 0-2 /HPF Urine Crystals NONE /LPF Urine Bacteria FEW H /HPF Urine Casts NONE /LPF Urine Mucus NEGATIVE /LPF Urine Culture Indicated YES Urine Opiates Screen NEGATIVE NEGATIVE Urine Oxycodone Screen NEGATIVE NEGATIVE Urine Methadone Screen NEGATIVE NEGATIVE Urine Propoxyphene Screen NEGATIVE NEGATIVE Urine Barbiturates Screen NEGATIVE NEGATIVE Ur Tricyclic Antidepressants Screen NEGATIVE NEGATIVE Urine Phencyclidine Screen NEGATIVE NEGATIVE Urine Amphetamines Screen NEGATIVE NEGATIVE Urine Methamphetamines Screen NEGATIVE NEGATIVE Urine Benzodiazepines Screen NEGATIVE NEGATIVE Urine Cocaine Screen NEGATIVE NEGATIVE Urine Cannabinoids Screen NEGATIVE NEGATIVE White Blood Count 8.1 4.3-11.0 10^3/uL Red Blood Count 4.43 3.80-5.11 10^6/uL Hemoglobin 12.8 11.5-16.0 g/dL Hematocrit 40 35-52 % Mean Corpuscular Volume 91 80-99 fL Mean Corpuscular Hemoglobin 29 25-34 pg Mean Corpuscular Hemoglobin Concent 32 32-36 g/dL Red Cell Distribution Width 13.0 10.0-14.5 % Platelet Count 304 130-400 10^3/uL Mean Platelet Volume 9.8 9.0-12.2 fL Immature Granulocyte % (Auto) 0 % Neutrophils (%) (Auto) 61 42-75 % Lymphocytes (%) (Auto) 30 12-44 % Monocytes (%) (Auto) 8 0-12 % Eosinophils (%) (Auto) 1 0-10 % Basophils (%) (Auto) 0 0-10 % Neutrophils # (Auto) 4.9 1.8-7.8 10^3/uL Lymphocytes # (Auto) 2.4 1.0-4.0 10^3/uL Monocytes # (Auto) 0.7 0.0-1.0 10^3/uL Eosinophils # (Auto) 0.1 0.0-0.3 10^3/uL Basophils # (Auto) 0.0 0.0-0.1 10^3/uL Immature Granulocyte # (Auto) 0.0 0.0-0.1 10^3/uL Sodium Level 140 135-145 MMOL/L Potassium Level 3.9 3.6-5.0 MMOL/L Chloride Level 104 98-107 MMOL/L Carbon Dioxide Level 23 21-32 MMOL/L Anion Gap 13 5-14 MMOL/L Blood Urea Nitrogen 12 7-18 MG/DL Creatinine 0.83 0.60-1.30 MG/DL Estimat Glomerular Filtration Rate 101 BUN/Creatinine Ratio 14 Glucose Level 71 70-105 MG/DL Calcium Level 9.9 8.5-10.1 MG/DL Corrected Calcium 9.7 8.5-10.1 MG/DL Total Bilirubin 0.3 0.1-1.0 MG/DL Aspartate Amino Transf (AST/SGOT) 17 5-34 U/L Alanine Aminotransferase (ALT/SGPT) 18 0-55 U/L Alkaline Phosphatase 56 40-136 U/L Total Protein 7.6 6.4-8.2 GM/DL Albumin 4.2 3.2-4.5 GM/DL Salicylates Level < 5.0 L 5.0-20.0 MG/DL Acetaminophen Level < 10 L 10-30 UG/ML Serum Alcohol < 10 <10 MG/DL SARS-CoV-2 RNA (RT-PCR) Not Detected Not Detecte (NICOLE GARLAND MD) My Orders Orders - NICOLE GARLAND MD General/Regular (11/17/21 Breakfast) (NICOLE GARLAND MD) Medications Given in ED Current Medications Medications Dose Ordered Sig/Brett Route Start Time Stop Time Status Last Admin Dose Admin Nitrofurantoin Macrocrystals 100 mg ONCE ONCE PO 11/17/21 01:15 11/17/21 01:16 DC 11/17/21 01:44 100 MG (NICOLE GARLAND MD) Vital Signs/I&O 11/16/21 23:52 Temp 36.8 Pulse 84 Resp 20 B/P (MAP) 115/96 (102) Pulse Ox 100 (NICOLE GARLAND MD) Progress Progress Note #1: Time: 00:18 Progress Note Patient thinks she may need inpatient stay but she is not 100% convinced. She says she would also be amenable to an outpatient work-up. We will put her in front of a mental health screener as soon as we medically clear her. Progress Note #2: Time: 01:10 Progress Note She does not have any urinary symptoms however there does appear to be the starting of a UTI. Be reasonable to start her on Macrobid today and have her take it for a week to prevent urinary tract infection. Patient is okay with this plan. The patient is medically cleared for inpatient or outpatient treatment. Nursing staff is calling the medical screeners. (JONAS DIAZ) Progress Note : Time: 07:31 Progress Note I spoke with the mental health screener regarding a safety plan for Leatha. She is going to stay with a friend for a while and let them manage her meds. She will follow up with her therapist. She states she is feeling better and is not having "as much suicidal thoughts" as she was. No thoughts of harming anyone else. No hallucinations. She is very comfortable being discharged home and was able to articulate to me a plan, if her thoughts intensify as to what she would do - "reach out to my support, therapist". we discussed practicing coping skills as would be provided by the mental health screener today. She states she will come back if her thoughts become out of control. I offerred her breakfast. She has no other ongoing concerns for acute medical illness. All questions are sought and answered. (NICOLE GARLAND MD) Initial ECG Impression Date: Nov 17, 2021 Initial ECG Impression Time: 00:15 Initial ECG Rate: 80 Initial ECG Rhythm: Normal Sinus Initial ECG Intervals: Normal Initial ECG Impression: Normal Comment Normal sinus rhythm without clinically relevant ST elevation or depression. (JONAS DIAZ) Departure Impression Primary Impression: Suicidal ideations Additional Impressions: Depression Qualified Codes: F32.A - Depression, unspecified Anxiety UTI (urinary tract infection) Qualified Codes: N39.0 - Urinary tract infection, site not specified Disposition: 01 HOME, SELF-CARE Condition: Improved Departure-Patient Inst. Decision time for Depature: 07:35 (NICOLE GARLAND MD) Referrals: [facility] (PCP) Primary Care Physician NATI BUTCHER APRN (Family) Primary Care Physician Patient Instructions: Depression, Adult ED Add. Discharge Instructions: Continue your daily medications as prescribed. Use your safety net, friends, family and therapist if you are feeling down and sad/depressed. Mental Health services will reach out to you to check in. Avoid Alcohol, because it can worsen thoughts of depression. Please come back to the Emergency Department if you have any worsening thoughts of harming yourself. Dr Diaz identified a mild urinary tract infection, please finish the antibiotics as directed, and come back sooner if you have abdominal pain, fever or other emergent, concerning symptoms. Scripts Nitrofurantoin Monohyd/M-Cryst (Macrobid 100 mg Capsule) 100 Mg Capsule 1 TAB PO BID, #9 CAP Prov: NICOLE GARLAND MD 11/17/21 Copy Copies To 1: ROSANNA BARNES TITUS J Nov 17, 2021 00:18 NICOLE GARLAND MD Nov 17, 2021 07:37
[2021-11-17 00:24] LABS: BASOPHILS % (AUTO) 0 % (0-10); EOSINOPHILS # (AUTO) 0.1 10^3/uL (0.0-0.3); EOSINOPHILS % (AUTO) 1 % (0-10); HEMATOCRIT 40 % (35-52); HEMOGLOBIN 12.8 g/dL (11.5-16.0); LYMPHOCYTES # (AUTO) 2.4 10^3/uL (1.0-4.0); LYMPHOCYTES % (AUTO) 30 % (12-44); MEAN CORPUSCULAR HEMOGLOBIN 29 pg (25-34); MEAN CORPUSCULAR HGB CONC 32 g/dL (32-36); MEAN CORPUSCULAR VOLUME 91 fL (80-99); MEAN PLATELET VOLUME 9.8 fL (9.0-12.2); MONOCYTES # (AUTO) 0.7 10^3/uL (0.0-1.0); MONOCYTES % (AUTO) 8 % (0-12); NEUTROPHILS # (AUTO) 4.9 10^3/uL (1.8-7.8); NEUTROPHILS % (AUTO) 61 % (42-75); PLATELET COUNT 304 10^3/uL (130-400); WHITE BLOOD COUNT 8.1 10^3/uL (4.3-11.0)
[2021-11-17 00:24] LABS: BACTERIA,URINE FEW /HPF; RBC,URINE 0-2 /HPF; SQUAMOUS EPITHELIAL CELL,UR 0-2 /HPF
[2021-11-17 00:33] LABS: AMPHETAMINE SCREEN, URINE NEGATIVE (NEGATIVE); BARBITURATE SCREEN URINE NEGATIVE (NEGATIVE); BENZODIAZEPINES SCREEN URINE NEGATIVE (NEGATIVE); CANNABINOID SCREEN, URINE NEGATIVE (NEGATIVE); COCAINE SCREEN URINE NEGATIVE (NEGATIVE); METHADONE STAT NEGATIVE (NEGATIVE); METHAMPHETAMINE SCREEN URINE S NEGATIVE (NEGATIVE); OPIATE SCREEN URINE NEGATIVE (NEGATIVE); OXYCODONE STAT NEGATIVE (NEGATIVE); PROPOXYPHENE STAT NEGATIVE (NEGATIVE); TRICYCLIC ANTIDEPRESSANTS SCRE NEGATIVE (NEGATIVE)
[2021-11-17 00:50] LABS: ALANINE AMINOTRANSFERASE 18 U/L (0-55); ALBUMIN 4.2 GM/DL (3.2-4.5); ALKALINE PHOSPHATASE 56 U/L (40-136); BILIRUBIN,TOTAL 0.3 MG/DL (0.1-1.0); BUN/CREATININE RATIO 14; CALCIUM 9.9 MG/DL (8.5-10.1); CARBON DIOXIDE 23 MMOL/L (21-32); CHLORIDE 104 MMOL/L (98-107); CREATININE SERUM 0.83 MG/DL (0.60-1.30); GFR ESTIMATED 101; GLUCOSE 71 MG/DL (70-105); POTASSIUM 3.9 MMOL/L (3.6-5.0); SALICYLATE < 5.0 MG/DL (5.0-20.0); SODIUM 140 MMOL/L (135-145); TOTAL PROTEIN 7.6 GM/DL (6.4-8.2)
[2021-11-17 00:52] LABS: ACETAMINOPHEN < 10 UG/ML (10-30)
[2021-11-17] MEDS ORDERED: NITROFURANTOIN 100 MG (MACROBID) CAPSULE PO ONE (01:15)
[2021-11-17] MEDS ORDERED: NITR-65 PO (07:38)
[2021-11-17 08:30] VITALS: BP 102/66
== END 2021-11-17 08:29 | disposition home or self-care (01) ==
LOC: EDUNIT# 23:36 → ER 23:38
DX: F32.9 Major depressive disorder, single episode, unspecified (principal); R45.851 Suicidal ideations; F41.9 Anxiety disorder, unspecified; N39.0 Urinary tract infection, site not specified; E66.9 Obesity, unspecified; Z68.36 Body mass index [BMI] 36.0-36.9, adult; Z20.822 Contact with and (suspected) exposure to COVID-19
CPT/HCPCS: 80053; 80306; 81000; 85025; 87088; 87636; 93005; 99283; G0480 ×3; 36415; 80320; 80329

== ENCOUNTER 2022-01-18 12:09 | Emergency (ER) | payer MEDICAID ==
[~2022-01-18] VITALS: Ht 160 cm; Wt 97.0 kg
--- NOTE | 2022-01-18 12:58 | ED Upper Extremity ---
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 Source: patient Exam Limitations: no limitations History of Present Illness Date Seen by Provider: January 18, 2022 Time Seen by Provider: 12:55 Initial Comments To ER with right shoulder pain. This began 3 days ago while at work she was reaching overhead to lift a thing of tea off of the shelf which was heavy and caused her arm to fall. Now she has pain with any active range of motion of the right shoulder. She has taken nothing for the pain yet. Onset: last week Severity: moderate Pain/Injury Location: right shoulder Method of Injury: other Modifying Factors: Worse With Movement Allergies and Home Medications Allergies Coded Allergies: No Known Drug Allergies (Unverified , 03/01/21) Patient Home Medication List Home Medication List Reviewed: Yes Naproxen (Naproxen) 500 Mg Tablet.dr, 500 MG PO BID Prescribed by: BIANCA CHANEL on 08/27/212115 Naproxen (Naproxen) 500 Mg Tablet.dr, 500 MG PO BID Prescribed by: NEHAL BAPTISTE on 10/14/2120 Nitrofurantoin Monohyd/M-Cryst (Macrobid 100 mg Capsule) 100 Mg Capsule, 1 TAB PO BID Prescribed by: NEHAL BAPTISTE on 10/14/2120 Nitrofurantoin Monohyd/M-Cryst (Macrobid 100 mg Capsule) 100 Mg Capsule, 1 TAB PO BID Prescribed by: NICOLE GARLAND on 11/17/21 0738 Review of Systems Constitutional: see HPI EENTM: see HPI Respiratory: no symptoms reported Cardiovascular: no symptoms reported Genitourinary: no symptoms reported Musculoskeletal: see HPI Skin: no symptoms reported Psychiatric/Neurological: No Symptoms Reported Past Eqcgknl-Ymalaj-Gajpzw Hx Patient Social History Tobacco Use?: Yes Tobacco type used: Cigarettes Smoking Status: Current Everyday Smoker Substance use?: No Alcohol Use?: No Pt feels they are or have been: No Immunizations Up To Date First/Initial COVID19 Vaccinat: NOVEMBER 2020 Second COVID19 Vaccination Devan: DECEMBER 2020 COVID19 Vaccine Assistant Merchandise Manager: NILDA Past Medical History Surgeries: No Respiratory: No Cardiac: No Neurological: No Reproductive Disorders: No Genitourinary: No Gastrointestinal: No Musculoskeletal: No Endocrine: Yes (OBESITY) HEENT: No (GLASSES) Cancer: No Psychosocial: Yes Anxiety, Depression Integumentary: No Blood Disorders: No Physical Exam Vital Signs Vital Signs - First Documented 01/18/22 12:50 Temp 36.3 Pulse 95 Resp 16 B/P (MAP) 119/81 (94) Pulse Ox 97 Capillary Refill : Less Than 3 Seconds Height, Weight, BMI Height: '" Weight: lbs. oz. kg; 37.00 BMI Method: General Appearance: WD/WN, no apparent distress Neck: non-tender, full range of motion Respiratory: normal breath sounds, no respiratory distress, no accessory muscle use Gastrointestinal: normal bowel sounds, non tender, soft Shoulder: normal inspection, limited ROM, pain, soft tissue tenderness Elbow/Forearm: normal inspection, non-tender Wrist: Yes normal inspection, Yes non-tender Hand: normal inspection, non-tender Neurologic/Psychiatric: alert, normal mood/affect, oriented x 3 Skin: normal color, warm/dry Progress/Results/Core Measures Results/Orders My Orders Orders - GINNY HEWITT APRN Shoulder, Right, 3 Views (01/18/22 12:58) Ibuprofen Tablet (Motrin Tablet) (01/18/22 13:00) Medications Given in ED Current Medications Medications Dose Ordered Sig/Brett Route Start Time Stop Time Status Last Admin Dose Admin Ibuprofen 800 mg ONCE ONCE PO 01/18/22 13:00 01/18/22 13:01 DC 01/18/22 13:08 800 MG Vital Signs/I&O 01/18/22 12:50 Temp 36.3 Pulse 95 Resp 16 B/P (MAP) 119/81 (94) Pulse Ox 97 Blood Pressure Mean: 94 Departure Impression Primary Impression: Internal derangement of right shoulder Disposition: 01 HOME, SELF-CARE Condition: Stable Departure-Patient Inst. Decision time for Depature: 12:56 Referrals: [facility] (PCP) Primary Care Physician NATI BUTCHER APRN (Family) Primary Care Physician Patient Instructions: Shoulder Pain (DC) Add. Discharge Instructions: 1. Wear the sling as needed. Tylenol and ibuprofen as needed for pain. Follow-up with your family doctor next week if you have persistent pain as you may need further imaging such as with an MRI if they feel that is appropriate. All discharge instructions reviewed with patient and/or family. Voiced understanding. Work/School Note: Work Release Form Date Seen in the Emergency Department: January 18, 2022 Return to Work: January 19, 2022 Other Restrictions Listed Below: No use of right arm for 1 week, use sling during that time GINNY HEWITT APRN January 18, 2022 12:58
[2022-01-18] MEDS ORDERED: IBUPROFEN 800 MG (MOTRIN) TAB PO ONE (13:00)
--- NOTE | 2022-01-18 13:35 | Diagnostic Imaging Report ---
INDICATION: Right shoulder pain and injury. TIME OF EXAM: 1:24 PM 3 views right shoulder were obtained. Glenohumeral and acromioclavicular alignment are normal. Acromiohumeral space is normal. No fracture or dislocation is seen. IMPRESSION: No acute abnormality is detected. Dictated by: Dictated on workstation # [id number]
[2022-01-18 13:37] VITALS: BP 120/80
== END 2022-01-18 13:38 | disposition home or self-care (01) ==
LOC: EDUNIT# 12:09 → ER 12:11
DX: M24.9 Joint derangement, unspecified (principal); E66.9 Obesity, unspecified; F17.210 Nicotine dependence, cigarettes, uncomplicated; X50.9XXA Other and unspecified overexertion or strenuous movements or postures, initial encounter; Y92.59 Other trade areas as the place of occurrence of the external cause; Y99.0 Civilian activity done for income or pay
CPT/HCPCS: 73030; 99283; A4565

== ENCOUNTER → 2022-01-28 | Outpatient (REF) ==
--- NOTE | 2022-01-28 15:39 | Diagnostic Imaging Report ---
INDICATION: Right arm injury. FINDINGS: Two views of the right humerus demonstrate no fracture or dislocation. Articular surfaces are normal. No osseous lesion. IMPRESSION: Negative right humerus. Dictated by: Dictated on workstation # [id number]
== END | disposition home or self-care (01) ==
LOC: OCC 15:09
PROVIDERS: ATTEND Nurse Practitioner Family
DX: Z01.818 Encounter for other preprocedural examination (principal)
CPT/HCPCS: 73060

== ENCOUNTER 2023-04-26 13:11 | Emergency (ER) | payer BC, MEDICAID ==
[~2023-04-26] VITALS: Ht 160 cm; Wt 92.2 kg
--- NOTE | 2023-04-26 14:14 | ED GU-Female ---
General Chief Complaint: - Reproductive Stated Complaint: LOWER ADB PAIN, VOMITING, BLOODY URINE Nursing Triage Note: Patient c/o Rt. flank pain that started last with getting worse yesterday. Patient states she was seen at [facility] and states she had blood in her urine. Patient states she started vomiting today around noon. Patient denies any fevers. Patient states her pain is a constant stabbing pain when moving around and denies any pain when laying or sitting down. Patient denies any burning or frequency with urination. Patient denies any diarrhea. Source: patient Exam Limitations: no limitations History of Present Illness Date Seen by Provider: Apr 26, 2023 Time Seen by Provider: 14:03 Initial Comments 28-year-old female presents to the ER with complaint of right lower quadrant abdominal and right side pain starting on . She reports she started vomiting today. She was seen at [facility] today and told there is blood in her urine. She states that they told her to come to the ER if her symptoms got worse. She denies fevers, diarrhea, dysuria. Last bowel movement was yesterday and normal. Last menstrual cycle was 2 weeks ago. She denies any abdominal surgeries. Allergies and Home Medications Allergies Coded Allergies: No Known Drug Allergies (Unverified , 03/01/21) Patient Home Medication List Home Medication List Reviewed: Yes Naproxen (Naproxen) 500 Mg Tablet.dr 500 MG PO BID Prescribed by: BIANCA CHANEL on 08/27/212115 Naproxen (Naproxen) 500 Mg Tablet.dr 500 MG PO BID Prescribed by: NEHAL BAPTISTE on 10/14/2120 Nitrofurantoin Monohyd/M-Cryst (Macrobid 100 mg Capsule) 100 Mg Capsule, 1 TAB PO BID Prescribed by: NEHAL BAPTISTE on 10/14/2120 Nitrofurantoin Monohyd/M-Cryst (Macrobid 100 mg Capsule) 100 Mg Capsule, 1 TAB PO BID Prescribed by: NICOLE GARLAND on 11/17/21 0738 Review of Systems Review of Systems Constitutional: see HPI Past Gxeaixy-Dxfjzl-Aunngu Hx Patient Social History Tobacco Use?: No Use of E-Cig and/or Vaping dev: Yes E-Cig or Vaping type used: Nicotine Use of E-Cig and/or Vaping Willem: Current Everyday User Substance use?: Yes Substance type: Marijuana Substance frequency: Once in a while Alcohol Use?: Yes Alcohol Frequency: Once in a while Immunizations Up To Date Influenza Vaccine Up-to-Date: Yes; Up-to-Date First/Initial COVID19 Vaccinat: NOVEMBER 2020 Second COVID19 Vaccination Devan: DECEMBER 2020 Past Medical History Surgeries: No Respiratory: No Cardiac: No Neurological: No Last Menstrual Period: Apr 12, 2023 Reproductive Disorders: No Genitourinary: No Gastrointestinal: No Musculoskeletal: No Endocrine: Yes (OBESITY) HEENT: No (GLASSES) Cancer: No Psychosocial: Yes Anxiety, Depression Integumentary: No Blood Disorders: No Physical Exam Vital Signs Vital Signs - First Documented 04/26/23 04/26/23 13:51 15:55 Temp 36.7 Pulse 82 Resp 16 B/P (MAP) 131/75 (93) Pulse Ox 98 O2 Delivery Room Air Capillary Refill : Height, Weight, BMI Height: '" Weight: lbs. oz. kg; 36.00 BMI Method: General Appearance: WD/WN, no apparent distress Neck: supple, normal inspection Cardiovascular: regular rate, rhythm Respiratory: lungs clear, normal breath sounds, no respiratory distress, no accessory muscle use Gastrointestinal: normal bowel sounds, soft; No rebound; tenderness (Right l ower quadrant) Extremities: normal range of motion, normal inspection Neurologic/Psychiatric: alert, normal mood/affect Skin: normal color, warm/dry Progress/Results/Core Measures Suspected Sepsis SIRS Temperature: Pulse: 82 Respiratory Rate: 16 Laboratory Tests 04/26/23 14:14: White Blood Count 8.2 Blood Pressure 131 /75 Mean: 93 Laboratory Tests 04/26/23 14:14: Creatinine 0.77, Platelet Count 270, Total Bilirubin 0.3 Results/Orders Lab Results Laboratory Tests Test 04/26/23 14:00 04/26/23 14:14 Range/Units Urine Color YELLOW Urine Clarity CLEAR Urine pH 6.0 5-9 Urine Specific Lynn 1.025 H 1.016-1.022 Urine Protein NEGATIVE NEGATIVE Urine Glucose (UA) NEGATIVE NEGATIVE Urine Ketones NEGATIVE NEGATIVE Urine Nitrite NEGATIVE NEGATIVE Urine Bilirubin NEGATIVE NEGATIVE Urine Urobilinogen 1.0 < = 1.0 MG/DL Urine Leukocyte Esterase NEGATIVE NEGATIVE Urine RBC (Auto) NEGATIVE NEGATIVE Urine RBC NONE /HPF Urine WBC 0-2 /HPF Urine Squamous Epithelial Cells 10-25 H /HPF Urine Crystals PRESENT H /LPF Urine Amorphous Sediment RARE CIARAN URATES H /LPF Urine Bacteria TRACE /HPF Urine Casts PRESENT /LPF Urine Mucus SMALL H /LPF Urine Culture Indicated NO White Blood Count 8.2 4.3-11.0 10^3/uL Red Blood Count 4.04 3.80-5.11 10^6/uL Hemoglobin 12.1 11.5-16.0 g/dL Hematocrit 38 35-52 % Mean Corpuscular Volume 93 80-99 fL Mean Corpuscular Hemoglobin 30 25-34 pg Mean Corpuscular Hemoglobin Concent 32 32-36 g/dL Red Cell Distribution Width 13.2 10.0-14.5 % Platelet Count 270 130-400 10^3/uL Mean Platelet Volume 9.9 9.0-12.2 fL Immature Granulocyte % (Auto) 0 % Neutrophils (%) (Auto) 70 42-75 % Lymphocytes (%) (Auto) 20 12-44 % Monocytes (%) (Auto) 9 0-12 % Eosinophils (%) (Auto) 1 0-10 % Basophils (%) (Auto) 1 0-10 % Neutrophils # (Auto) 5.7 1.8-7.8 10^3/uL Lymphocytes # (Auto) 1.6 1.0-4.0 10^3/uL Monocytes # (Auto) 0.7 0.0-1.0 10^3/uL Eosinophils # (Auto) 0.1 0.0-0.3 10^3/uL Basophils # (Auto) 0.0 0.0-0.1 10^3/uL Immature Granulocyte # (Auto) 0.0 0.0-0.1 10^3/uL Sodium Level 141 135-145 MMOL/L Potassium Level 4.2 3.6-5.0 MMOL/L Chloride Level 108 H 98-107 MMOL/L Carbon Dioxide Level 24 21-32 MMOL/L Anion Gap 9 5-14 MMOL/L Blood Urea Nitrogen 10 7-18 MG/DL Creatinine 0.77 0.60-1.30 MG/DL Estimat Glomerular Filtration Rate 109 BUN/Creatinine Ratio 13 Glucose Level 89 70-105 MG/DL Calcium Level 8.9 8.5-10.1 MG/DL Corrected Calcium 9.0 8.5-10.1 MG/DL Total Bilirubin 0.3 0.1-1.0 MG/DL Aspartate Amino Transf (AST/SGOT) 12 5-34 U/L Alanine Aminotransferase (ALT/SGPT) 14 0-55 U/L Alkaline Phosphatase 55 40-136 U/L C-Reactive Protein High Sensitivity 0.26 0.00-0.50 MG/DL Total Protein 6.7 6.4-8.2 GM/DL Albumin 3.9 3.2-4.5 GM/DL My Orders Orders - VIKY STAFFORD APRN Ua Culture If Indicated (04/26/23 14:03) Urine Bedside (04/26/23 14:03) Comprehensive Metabolic Panel (04/26/23 14:10) Ed Iv/Invasive Line Start (04/26/23 14:10) Cbc With Automated Diff (04/26/23 14:10) Hs C Reactive Protein (04/26/23 14:10) Ns Iv 1000 Ml (Ns Iv 1000 Ml) (04/26/23 14:15) Ondansetron Injection (Ondansetron Inj (04/26/23 14:15) Ketorolac Injection (Ketorolac Injection (04/26/23 14:15) Ct Abd/Pelv W (Appendicitis) (04/26/23 14:29) Iohexol Injection (Omnipaque 350 Mg/Ml 1 (04/26/23 14:45) Received Contrast (Hold Metformin- Contr (04/26/23 14:45) Ns (Ivpb) 100 Ml (Sodium Chloride 0.9% 1 (04/26/23 14:45) Medications Given in ED Current Medications Medications Dose Ordered Sig/Brett Route Start Time Stop Time Status Last Admin Dose Admin Iohexol 100 ml ONCE ONCE IV 04/26/23 14:45 04/26/23 14:46 DC 04/26/23 14:51 80 ML Ketorolac Tromethamine 15 mg ONCE ONCE IVP 04/26/23 14:15 04/26/23 14:16 DC 04/26/23 14:20 15 MG Ondansetron HCl 4 mg ONCE ONCE IVP 04/26/23 14:15 04/26/23 14:16 DC 04/26/23 14:20 4 MG Sodium Chloride 100 ml ONCE ONCE IV 04/26/23 14:45 04/26/23 14:46 DC 04/26/23 14:51 80 ML Vital Signs/I&O 04/26/23 04/26/23 13:51 15:55 Temp 36.7 36.7 Pulse 82 82 Resp 16 16 B/P (MAP) 131/75 (93) 117/66 Pulse Ox 98 O2 Delivery Room Air Room Air Capillary Refill : Blood Pressure Mean: 93 Progress Note : Progress Note Patient seen and evaluated, resting comfortably in bed, no acute distress. Based on exam and symptoms, differential diagnosis includes but is not limited to nephrolithiasis, pyelonephritis, UTI, appendicitis. Work-up initiated including CBC, CMP, CRP, UA, urine . IV fluids, Toradol, Zofran ordered. 1549 Labs and imaging reviewed. CBC grossly normal. CMP grossly normal, chloride slightly elevated 108. Urinalysis negative for RBCs, shows 0-2 WBCs, 10-25 squamous epithelial cells, trace bacteria. CT abdomen pelvis shows prominent stool in the colon especially on the right side, no bowel obstruction, no evidence of appendicitis. Results discussed with patient. Right-sided abd ominal pain likely related to constipation. Patient instructed to get Colace or MiraLAX [id number]. Discharge instructions and return precautions provided. Diagnostic Imaging Diagonstic Imaging: CT Plain Films/CT/US/NM/MRI: abdomen, pelvis Comments [facility]. [place], [place] NAME: MARY MENDEZ [facility] REC#: [id number] PT STATUS: REG ER : 1995 PHYSICIAN: VIKY STAFFORD APRN ADMIT DATE: 04/26/23/ER Signed Date of Exam:04/26/23 CT ABD/PELV W (APPENDICITIS) INDICATION: Right flank pain x4 days, vomiting. TECHNIQUE: Multiple contiguous axial images were obtained through the abdomen and pelvis after the administration of intravenous contrast. All CT scans use one or more of the following dose optimizing techniques: automated exposure control, MA and/or KvP adjustment based on patient size and exam type or iterative reconstruction. Comparison made to prior CT 10/13/2021. The visualized portions of the lung bases show some dependent atelectatic changes. There is no consolidation or pleural fluid. There is no free intraperitoneal air The liver shows no focal lesion. Gallbladder appears unremarkable. The spleen, adrenals, and pancreas appear unremarkable. The kidneys bilaterally appear unremarkable. There is no retroperitoneal mass or adenopathy. There is no ascites or abnormal fluid collection. Visualized bowel loops show prominent amount of stool in the colon. The appendix appears unremarkable. Uterus and adnexa appear grossly unremarkable. There is no pelvic mass or free fluid. IMPRESSION: Prominent stool in the colon, especially the right colon. No overt bowel obstruction. No CT evidence of appendicitis. There is no acute finding. Dictated by: Dictated on workstation # [id number] Dict: 04/26/23 1456 Trans: 04/26/23 1544 CV [id number] Interpreted by: FEDE HOWARD MD Electronically signed by: FEDE HOWARD MD 04/26/23 1544 Departure Impression Primary Impression: Constipation Disposition: 01 HOME, SELF-CARE Condition: Stable Departure-Patient Inst. Decision time for Depature: 15:49 Referrals: [facility] (PCP) Primary Care Physician Patient Instructions: Constipation, Adult ED Add. Discharge Instructions: You may try Colace or MiraLAX [id number] for constipation. Make sure you are drinking plenty of water. Return for any new, concerning, or worsening symptoms. All discharge instructions reviewed with patient and/or family. Voiced unde rstanding. VIKY STAFFORD APRN Apr 26, 2023 14:14
[2023-04-26] MEDS ORDERED: NS IV 1000 ML 1,000 ML IV SCH (14:15)
[2023-04-26] MEDS ORDERED: ONDANSETRON INJECTION 4 MG/2 ML (SDV) IVP ONE (14:15)
[2023-04-26] MEDS ORDERED: KETOROLAC INJ 15 MG/ML VIAL IVP ONE (14:15)
[2023-04-26 14:20] LABS: BASOPHILS % (AUTO) 1 % (0-10); EOSINOPHILS # (AUTO) 0.1 10^3/uL (0.0-0.3); EOSINOPHILS % (AUTO) 1 % (0-10); HEMATOCRIT 38 % (35-52); HEMOGLOBIN 12.1 g/dL (11.5-16.0); LYMPHOCYTES # (AUTO) 1.6 10^3/uL (1.0-4.0); LYMPHOCYTES % (AUTO) 20 % (12-44); MEAN CORPUSCULAR HEMOGLOBIN 30 pg (25-34); MEAN CORPUSCULAR HGB CONC 32 g/dL (32-36); MEAN CORPUSCULAR VOLUME 93 fL (80-99); MEAN PLATELET VOLUME 9.9 fL (9.0-12.2); MONOCYTES # (AUTO) 0.7 10^3/uL (0.0-1.0); MONOCYTES % (AUTO) 9 % (0-12); NEUTROPHILS # (AUTO) 5.7 10^3/uL (1.8-7.8); NEUTROPHILS % (AUTO) 70 % (42-75); PLATELET COUNT 270 10^3/uL (130-400); WHITE BLOOD COUNT 8.2 10^3/uL (4.3-11.0)
[2023-04-26 14:25] LABS: AMORPHOUS SEDIMENT,UR RARE AMOR URATES /LPF; BACTERIA,URINE TRACE /HPF; BILIRUBIN,URINE NEGATIVE (NEGATIVE); CLARITY,URINE CLEAR; COLOR,URINE YELLOW; GLUCOSE, URINE (UA) NEGATIVE (NEGATIVE); KETONES,URINE NEGATIVE (NEGATIVE); LEUKOCYTE ESTERASE ,URINE NEGATIVE (NEGATIVE); NITRITE,URINE NEGATIVE (NEGATIVE); PROTEIN,URINE NEGATIVE (NEGATIVE); WBC,URINE 0-2 /HPF
[2023-04-26 14:42] LABS: ALBUMIN 3.9 GM/DL (3.2-4.5); BILIRUBIN,TOTAL 0.3 MG/DL (0.1-1.0); CALCIUM 8.9 MG/DL (8.5-10.1); CREATININE SERUM 0.77 MG/DL (0.60-1.30); POTASSIUM 4.2 MMOL/L (3.6-5.0); TOTAL PROTEIN 6.7 GM/DL (6.4-8.2)
[2023-04-26] MEDS ORDERED: IOHEXOL 350 MG/ML 100 ML (OMNIPAQUE 350) VIAL IV ONE (14:45)
[2023-04-26] MEDS ORDERED: HOLD METFORMIN - RECEIVED CONTRAST 20 ML VIAL IV SCH (14:45)
[2023-04-26] MEDS ORDERED: NS 100 ML (IVPB) BAG IV ONE (14:45)
--- NOTE | 2023-04-26 15:02 | Diagnostic Imaging Report ---
INDICATION: Right flank pain x4 days, vomiting. TECHNIQUE: Multiple contiguous axial images were obtained through the abdomen and pelvis after the administration of intravenous contrast. All CT scans use one or more of the following dose optimizing techniques: automated exposure control, MA and/or KvP adjustment based on patient size and exam type or iterative reconstruction. Comparison made to prior CT 10/13/2021. The visualized portions of the lung bases show some dependent atelectatic changes. There is no consolidation or pleural fluid. There is no free intraperitoneal air The liver shows no focal lesion. Gallbladder appears unremarkable. The spleen, adrenals, and pancreas appear unremarkable. The kidneys bilaterally appear unremarkable. There is no retroperitoneal mass or adenopathy. There is no ascites or abnormal fluid collection. Visualized bowel loops show prominent amount of stool in the colon. The appendix appears unremarkable. Uterus and adnexa appear grossly unremarkable. There is no pelvic mass or free fluid. IMPRESSION: Prominent stool in the colon, especially the right colon. No overt bowel obstruction. No CT evidence of appendicitis. There is no acute finding. Dictated by: Dictated on workstation # [id number]
[2023-04-26 15:55] VITALS: BP 117/66
== END 2023-04-26 15:55 | disposition home or self-care (01) ==
LOC: EDUNIT# 13:11 → ER 13:16
DX: K59.00 Constipation, unspecified (principal); R11.10 Vomiting, unspecified; F17.290 Nicotine dependence, other tobacco product, uncomplicated; E66.9 Obesity, unspecified; Z68.36 Body mass index [BMI] 36.0-36.9, adult
CPT/HCPCS: 36415; 74177; 80053; 81000; 84703; 85025; 86141